=== PATIENT | female | born 1955 | race Caucasian/White ===

== ENCOUNTER → 2020-04-28 | Outpatient (CLI) | payer MEDICARE ==
[2020-05-01 14:16] LABS: HPV 16 Negative (Negative); HPV 18 Negative (Negative)
== END ==
LOC: LAB SHORT 15:41 → LAB 15:41
PROVIDERS: Student in an Organized Health Care Education/Training Program
DX: Z12.4 Encounter for screening for malignant neoplasm of cervix (principal)
CPT/HCPCS: 87625; 88175

== ENCOUNTER 2025-01-22 14:14 | Emergency (ER) | payer MEDICARE ==
[~2025-01-22] VITALS: Ht 170.2 cm; Wt 63.5 kg
[~2025-01-22 14:14] MED LIST: FAMO10; GABA300; LEVOTHYROXINE13 MCG; Lisinopril2.5 MG; OXYC10ER; Robaxin750 MG; TOPI15C; VALA500; ZOLP5
[2025-01-22 15:19] LABS: BASOPHILS PERCENT AUTO 1 % (0-2); EOSINOPHILS ABSOLUTE AUTO 0.24 K/mm3 (0.00-0.68); EOSINOPHILS PERCENT AUTO 3 % (0-6); Hematocrit 41.3 % (33.0-51.0); Hemoglobin 14.1 g/dL (11.5-16.0); IMMATURE GRAN ABSOLUTE AUTO 0.02 K/mm3 (0.00-0.10); IMMATURE GRAN PERCENT AUTO 0 % (0-1); LYMPHOCYTES PERCENT AUTO 33 % (21-46); MONOCYTES ABSOLUTE AUTO 0.78 K/mm3 (0.16-1.47); MONOCYTES PERCENT AUTO 10 % (4-13); Mean Corpuscular HGB 33.3 pg (26.0-34.0); Mean Corpuscular HGB Conc 34.1 g/dL (31.5-36.5); Mean Corpuscular Volume 98 fL (80-100); Mean Platelet Volume 11.1 fL (9.1-12.4); NEUTROPHILS ABSOLUTE AUTO 4.06 K/mm3 (1.96-9.15); NEUTROPHILS PERCENT AUTO 52 % (41-73); Platelet Count 226 K/mm3 (150-400); RDW Coefficient Variation 12.9 % (11.7-14.2); RDW Standard Deviation 46.2 fL (35.1-46.3); Red Blood Cell Count 4.23 M/mm3 (3.80-5.20)
[2025-01-22 15:58] LABS: Albumin/Globulin Ratio 1.3 (0.8-1.8); Bilirubin, Total 0.5 mg/dL (0.1-1.0); Bun/Creatinine Ratio 19.7 (12.0-20.0); Calcium, Blood 8.7 mg/dL (8.5-10.1); Creatinine, Blood 0.61 mg/dL (0.40-1.00); Potassium, Blood 3.8 mmol/L (3.5-5.5)
[2025-01-22] MEDS ORDERED: LOSA50 PO (17:52)
[2025-01-22] MEDS ORDERED: Norco 10-325 T1 EACH PO (17:52)
[2025-01-22] MEDS ORDERED: Aspir 8181 MG PO (17:52)
[2025-01-22 19:45] VITALS: BP 164/95
== END 2025-01-22 20:04 | disposition home or self-care (01) ==
LOC: ER 14:14
PROVIDERS: Physician Assistant
DX: I10 Essential (primary) hypertension (principal); R07.89 Other chest pain; Z79.82 Long term (current) use of aspirin; Z79.890 Hormone replacement therapy; Z79.899 Other long term (current) drug therapy
CPT/HCPCS: 71046; 80053; 84484; 85025; 93005; 93010; 96374; 99285-25